=== PATIENT | male | born 1990 | race Caucasian/White ===

== ENCOUNTER 2016-11-19 12:26 | Day surgery (SDC) | payer OTHER ==
[~2016-11-19] VITALS: Ht 180.3 cm; Wt 67.0 kg
[2016-11-19 13:00] VITALS: Ht 180.3 cm; Wt 67.0 kg
[2016-11-19] MEDS ORDERED: MESA0.372 PO (13:07)
[2016-11-19] MEDS ORDERED: FER325 PO (13:07)
[2016-11-19 13:21] VITALS: BP 101/65; PULSE 87; RESP 23
[2016-11-19] MEDS ORDERED: PROPOFOL 20 ML ONE (14:32)
[2016-11-19] MEDS ORDERED: MIDAZOLAM 1 MG/ML 2 ML INJ ONE (14:32)
[2016-11-19] MEDS ORDERED: LIDOCAINE 2% (SDV) 5 ML INJ ONE (14:32)
[2016-11-19 15:45] VITALS: BP 107/70; RESP 20
--- NOTE | 2016-11-19 16:32 | GILP ---
DATE OF PROCEDURE: 11/19/2016 PROCEDURE PERFORMED: Colonoscopy with polyp ablation x2. Colonoscopy with multiple biopsies and en teroscopy with biopsies. INDICATIONS: The patient is being evaluated for history of ulcerative colitis with persistent diarr hea and blood. PREMEDICATION: Monitored anesthesia care by anesthesiologist. SURGEON: Casey Phillips MD. INSTRUMENT USED: Olympus colonoscope. PREPARATION: Adequate. TECHNIQUE: After informed consent, with the patient/relatives understanding the procedure, its indic ations potential risks and complications, including but not limited to: allergic reaction, bleeding, perforation, infection, missed lesions and after all pertinent questions were answered to the patie nt's satisfaction, the patient/relatives signed the witnessed informed consent. Following this, premedication was administered slowly IV push by under careful cardiovascular and re spiratory monitoring with pulse oximetry, automatic blood pressure and residential monitor. Once the sedativ e effect was achieved, the patient was placed in the left lateral decubitus position, digital rectal examination was performed. The colonoscope was then introduced and advanced under visual control th roughout all segments of the colon including: the rectum, sigmoid, descending colon, splenic flexure , transverse colon, hepatic flexure, ascending colon and finally reaching the cecum which was clearl y identified by transillumination, finger indentation and the ileocecal valve. Careful examination o f the mucosa of the lower gastrointestinal tract both on insertion as well as withdrawal of the inst rument disclosed the following findings: Rectal Examination: No evidence of perirectal disease, no masses. Colonic Mucosa: There is severe acute colitis from the rectum to the mid transverse colon. Colitis is severe and features deep areas of linear ulceration which are more consistent with Crohn's disea se. The process abruptly ends in the mid transverse. The mid transverse and ascending colon appear unremarkable. The area of the cecum; however, shows again significant inflammatory changes with er ythema, edema and superficial ulceration. The terminal ileum is deformed and appears erythematous, edematous and with shallow ulcers. Biopsies were obtained of the terminal ileum. The cecum was als o biopsied and the ascending colon was biopsied. The transverse colon was biopsied at the transitio n. The descending colon was remarkable for the presence of an 8 mm polyp that was ablated with biop sy forceps. A second polyp measuring also about 8 mm was ablated in the rectum. Moderate sized int ernal hemorrhoids are present. IMPRESSION: 1. Severe acute colitis more consistent with Crohn's disease. Extends from the rectum to the mid t ransverse colon. Proximal transverse, ascending colon appeared normal. Cecum with significant evid ence of colitis. Possible ileitis, biopsies obtained. 2. An 8 mm polyp in the descending colon ablated. An 8 mm polyp in the rectum ablated. Multiple b iopsies obtained of the cecum, the ascending, transverse, descending, sigmoid and rectal areas. Mod erate sized internal hemorrhoids are present. PLAN: The patient will continue present regimen with ____ 1.5 grams a day. I will discuss therapeu tic options with the patient. My recommendation would be to start steroids and considered Humira as the next step in order to control this disease. Pathology will be reviewed as soon as available. Inflammatory bowel disease serology and CT enterography should also be obtained in anticipation of t he capsule endoscopy. Dictated By: CASEY PHILLIPS MS/DANNIE Conf#: [id number] DID#: [id number]
== END 2016-11-19 15:40 | disposition home or self-care (01) ==
LOC: GIL 12:26
PROVIDERS: ATTEND Internal Medicine Gastroenterology
DX: D12.4 Benign neoplasm of descending colon (principal); K52.89 Other specified noninfective gastroenteritis and colitis
CPT/HCPCS: 45380; 88305; J2250; Z7610